=== PATIENT | female | born 2005 | race Caucasian/White ===

== ENCOUNTER 2024-07-25 13:25 | Emergency (ER) | payer BC ==
[~2024-07-25] VITALS: Ht 162.6 cm; Wt 146.8 kg
[~2024-07-25 13:25] MED LIST: ONDANSETRON ODT8 MG PO
--- OUTSIDE RECORDS SUMMARY | 2024-07-25 13:31 | XMS ---
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 E.Chandrika VISIT COUNT (12 MO.) 3 [facility]Vickie Johnston[facility] TOTAL 5 NOTE: Visits indicate total known visits. ED/UCC VISIT TRACKING (12 MO.) 07/25/2024 13:25 [facility] [place] TYPE: Emergency COMPLAINT: - POSSIBLE ALLERGIC REACTION 05/21/2024 11:21 [facility] [place] TYPE: Emergency COMPLAINT: - LT HIP PAIN 04/25/2024 02:[address] [facility] [place] TYPE: Emergency COMPLAINT: - FREQUENT SEIZURES DIAGNOSES: - Allergy status to other drugs, medicaments and biological substances - Altered mental status, unspecified - Other shelter (current) drug therapy - Weakness 04/23/2024 19:59 [facility] BOJORQUEZ (Vickie Johnston) TYPE: Emergency DIAGNOSES: - Abdominal Pain - Diarrhea (Adult) - Emesis - Nausea - Possible Seizure - recent seizures 03/06/2024 18:42 [facility] Vickie Johnston MARYELLEN (Vickie Johnston) TYPE: Emergency DIAGNOSES: - Generalized abdominal pain - Nausea - Pain, unspecified - abd pain, confusion, dizzy - abd pain, confusion, dizzy, seizure - Abdominal Pain - Possible Seizure INPATIENT VISIT TRACKING (12 MO.) No inpatient visits to display in this time frame [email or web address]
[2024-07-25 14:27] VITALS: BP 130/80
== END 2024-07-25 14:29 | disposition home or self-care (01) ==
LOC: ED 13:25
DX: Z71.1 Person with feared health complaint in whom no diagnosis is made (principal); Z88.1 Allergy status to other antibiotic agents; Z79.899 Other long term (current) drug therapy
CPT/HCPCS: 99283